=== PATIENT | male | born 1960 | race Caucasian/White ===

== ENCOUNTER 2024-11-13 19:39 | Emergency (ER) | payer OTHER, SELFPAY ==
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
[2024-11-13 20:19] VITALS: BP 114/50; PULSE 60; RESP 20; TEMP 36.6; O2SAT 98
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
[2024-11-13 22:09] VITALS: BP 127/85; PULSE 70; RESP 16; O2SAT 100
[2024-11-13] MEDS: Please add drug allergy info to patient profile. 1 EACH XX (22:12)
[2024-11-13] MEDS: KETOROLAC 15 MG/ML VIAL (*BKC) IV PUSH (22:12)
[2024-11-13] MEDS: diazePAM INJ (*CRX) 10 MG/2 ML SYRINGE 5 MG IV PUSH (22:12)
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
[2024-11-13 22:57] VITALS: BP 109/72; RESP 13; O2SAT 100
== END 2024-11-13 22:59 | disposition home or self-care (01) ==
LOC: ANHED 22:34
PROVIDERS: Emergency Provider Physician Assistant; PCP Physician Assistant
DX: M54.2 Cervicalgia (principal); M25.532 Pain in left wrist; M25.572 Pain in left ankle and joints of left foot; V89.2XXA Person injured in unspecified motor-vehicle accident, traffic, initial encounter; W22.10XA Striking against or struck by unspecified automobile airbag, initial encounter
CPT/HCPCS: 70450; 72125; 73110; 96374; 96375; 99284; J1885; J3360